=== PATIENT | male | born 1970 | race Caucasian/White ===

== ENCOUNTER 2023-08-11 13:35 | Emergency (ER) | payer SELFPAY ==
[2023-08-11 13:38] VITALS: BP 125/83; PULSE 113; RESP 16; TEMP 36.6; O2SAT 95
--- NOTE | 2023-08-11 13:46 | CT_ITS ---
WS: [id number] CT HEAD NONCONTRAST HISTORY: tremors TECHNIQUE: Contiguous axial imaging performed through the brain in 2.5 mm imaging. Bone and soft tiss ue windows. Sagittal and coronal reformats reviewed. All CT scans at [facility] use at least one of these dose optimization techniques: automated exposure control; mA and/or kV adjustment per pa tient size (includes targeted exams where dose is matched to clinical indication); or iterative recon struction. DLP: 1113.91 mGy.cm COMPARISON: None available. No acute intracranial hemorrhage, midline shift or mass effect. No significant atrophy. There are very slight area of decreased attenuation posteriorly in the occipi calista lobes. Ventricles: Normal size with no hydrocephalus. No inferior displacement of the cerebellar tonsils. Paranasal sinuses: Mild mucoperiosteal thickening in the ethmoid air cells. Mastoid air cells: Well pneumatized. Calvarium and scalp: Skull is intact with no soft tissue edema or swelling. IMPRESSION: 1. No acute intracranial hemorrhage or edema. 2. Very slight low attenuation in the occipital lobes bilaterally. May be related to small vessel is chemic disease. PRESS may appear similar. Consider follow-up MRI brain with and without contrast.
[2023-08-11 14:13] LABS: Basophils # 0.1 10^3/uL (0.0-0.1); Basophils % 0.5 %; Eosinophils # 0.1 10^3/uL (0.0-0.8); Hematocrit 46.9 % (37-53); Lymphocytes # 1.6 10^3/uL (0.8-4.8); Lymphocytes % 15.9 %; Mean Corpuscular HGB Conc 33.7 g/dL (30-55); Mean Corpuscular Volume 86.1 fl (82-101); Mean Platelet Volume 10.8 fL (7.4-10.4); Monocytes # 0.6 10^3/uL (0.2-0.9); Monocytes % 5.4 %; Neutrophils # 7.88 10^3/uL (1.8-7.7); Neutrophils % 76.6 %; Nucleated Red Blood Cells % 0 %; Platelet Count 264 10^3/cmm (157-399); Red Blood Count 5.45 10^6/uL (3.85-5.65); Red Cell Distribution Width 12.6 % (12.1-15.1); White Blood Count 10.29 10^3/uL (3.29-11.43)
[2023-08-11 14:32] VITALS: BP 119/74; PULSE 87; RESP 19; O2SAT 98
[2023-08-11 14:38] LABS: Alanine Aminotransferase 15 U/L (0-41); Albumin Level 4.3 g/dL (3.5-5.2); Alkaline Phosphatase 87 U/L (40-130); Ammonia 22 umol/L (16-60); Anion Gap 16.7 (5-19); Aspartate Amino Transferase 19 U/L (0-40); Blood Urea Nitrogen 19 mg/dL (6-20); Calcium 9.6 mg/dL (8.5-10.5); Carbon Dioxide 26 mmol/L (22-29); Chloride 98 mmol/L (98-107); Globulin 3.7 g/dL (1.3-4.6); Glomerular Filtration Rate 69.8 mL/min (90-130); Glucose 72 mg/dL (65-115); Osmolality Calculated 285 mOsm/kg (285-295); Potassium 3.7 mmol/L (3.5-5.1); Sodium 137 mmol/L (136-145); Total Bilirubin 0.3 mg/dL (0.15-1.2)
--- NOTE | 2023-08-11 14:46 | ED_ITS ---
HPI - General Adult 2 General: Chief complaint: General Medical Stated complaint: zandra isaacs, dizzy Time Seen by Provider: 08/11/23 13:43 History of Present Illness: 53-year-old man who presents to the [facility] with tremors. He says this has been going on for about 4 months. He went to his clinic today and I will they have him scheduled to see a specialist in a month or so they told him to go to the emergency room he says. The tremor affects his speech. He appears to have a pill-rolling tremor of his left hand. He has a very parkinsonian appearance. His only medical history says his hypertension. No altered mental status. No focal motor deficits. No chest pain. No shortness of breath. No nausea or vomiting. Patient does state that he has a family history of some sort of parkinsonian type illness. Review of Systems 2 Narrative: Constitutional symptoms: Negative except as documented in HPI. Skin symptoms: Negative except as documented in HPI. Eye symptoms: Negative except as documented in HPI. ENMT symptoms: Negative except as documented in HPI. Respiratory symptoms: Negative except as documented in HPI. Cardiovascular symptoms: Negative except as documented in HPI. Gastrointestinal symptoms: Negative except as documented in HPI. Genitourinary symptoms: Negative except as documented in HPI. Musculoskeletal symptoms: Negative except as documented in HPI. Neurologic symptoms: Negative except as documented in HPI. Psychiatric symptoms: Negative except as documented in HPI. Endocrine symptoms: Negative except as documented in HPI. Physical Exam 2 Narrative: EXAM NARRATIVE: General: Alert, no acute distress. Skin: Warm, dry. Head: Normocephalic, atraumatic. Neck: Supple, trachea midline. Eye: Extraocular movements are intact. Ears, nose, mouth and throat: mucosa moist. Cardiovascular: Regular, Normal peripheral perfusion. Respiratory: Lungs are clear to auscultation, respirations are non-labored, breath sounds are equal, Symmetrical chest wall expansion. Gastrointestinal: Soft, Nontender, Non distended, Normal bowel sounds. Musculoskeletal: Normal ROM, no deformity. Neurological: Alert and oriented, No focal neurological deficit observed. Patient has a fairly severe tremor. Parkinsonian-like. Pill-rolling tremor of his left hand. It affects his speech. Psychiatric: Cooperative, appropriate mood & affect. Course 2 Vital Signs: Vital signs: Vital Signs Temperature 98 F 08/11/23 13:38 Pulse Rate 87 04/23/24 14:32 Respiratory Rate 19 H 08/11/23 14:32 Blood Pressure 119/74 08/11/23 14:32 Pulse Oximetry 98 08/11/23 14:32 Oxygen Delivery Me thod Room Air 08/11/23 14:32 MDM - General Adult Medical Decision Making Medical decision making: Differential diagnosis including but not limited to and based on the above HPI, review of systems and physical exam: I have concern for Parkinson's. To start his workup I am doing basic lab work and a CT scan. Also consultation with neurology. Orders placed to evaluate differential diagnosis based on the above differential, HPI and physical exam Lab Review: Laboratory results were reviewed and interpreted by myself the emergency room physician. Lab work is unremarkable. No leukocytosis. No renal failure. CT head: No acute intracranial process. no intracranial hemorrhage, no evidence of infarct. no evidence of acute fracture.This was reviewed and interpreted by myself the ER physician. Consultation: I spoke with Dr. Amaral with neurology. She agrees with the workup so far and will see the patient in clinic on Thursday morning at 8 AM. I reviewed the patient's medical record. Reexamination: Patient remained stable. No altered mental status. Still with a tremor. No increased work of breathing. Lab Data 08/11/23 14:07 08/11/23 14:07 Laboratory Results WBC 10.29 10^3/uL (3.29-11.43) 08/11/23 14:07 RBC 5.45 10^6/uL (3.85-5.65) 08/11/23 14:07 Hgb 15.80 g/dL (11.27-16.99) 08/11/23 14:07 Hct 46.9 % (37-53) 08/11/23 14:07 MCV 86.1 fl (82-101) 08/11/23 14:07 MCH 29.0 pg (27-33) 08/11/23 14:07 MCHC 33.7 g/dL (30-55) 08/11/23 14:07 RDW 12.6 % (12.1-15.1) 08/11/23 14:07 Plt Count 264 10^3/cmm (157-399) 08/11/23 14:07 MPV 10.8 fL (7.4-10.4) H 08/11/23 14:07 Neut % (Auto) 76.6 % 08/11/23 14:07 Lymph % (Auto) 15.9 % 08/11/23 14:07 [place] % (Auto) 5.4 % 08/11/23 14:07 Eos % (Auto) 1.0 % 08/11/23 14:07 Baso % (Auto) 0.5 % 08/11/23 14:07 Neut # (Auto) 7.88 10^3/uL (1.8-7.7) H 08/11/23 14:07 Lymph # (Auto) 1.6 10^3/uL (0.8-4.8) 08/11/23 14:07 [place] # (Auto) 0.6 10^3/uL (0.2-0.9) 08/11/23 14:07 Eos # (Auto) 0.1 10^3/uL (0.0-0.8) 08/11/23 14:07 Baso # (Auto) 0.1 10^3/uL (0.0-0.1) 08/11/23 14:07 Nucleated RBC % (auto) 0 % 08/11/23 14:07 Nucleated RBCs # 0.0 /100WBC 08/11/23 14:07 Sodium 137 mmol/L (136-145) 08/11/23 14:07 Potassium 3.7 mmol/L (3.5-5.1) 08/11/23 14:07 Chloride 98 mmol/L (98-107) 08/11/23 14:07 Carbon Dioxide 26 mmol/L (22-29) 08/11/23 14:07 Anion Gap 16.7 (5-19) 08/11/23 14:07 BUN 19 mg/dL (6-20) 08/11/23 14:07 Creatinine 1.1 mg/dL (0.7-1.2) 08/11/23 14:07 GFR Calculation 69.8 mL/min (90-130) L 08/11/23 14:07 Glucose 72 mg/dL (65-115) 08/11/23 14:07 Calculated Osmolality 285 mOsm/kg (285-295) 08/11/23 14:07 Calcium 9.6 mg/dL (8.5-10.5) 08/11/23 14:07 Total Bilirubin 0.3 mg/dL (0.15-1.2) 08/11/23 14:07 AST 19 U/L (0-40) 08/11/23 14:07 ALT 15 U/L (0-41) 08/11/23 14:07 Alkaline Phosphatase 87 U/L (40-130) 08/11/23 14:07 Ammonia 22 umol/L (16-60) 08/11/23 14:07 Total Protein 8.0 g/dL (6.6-8.7) 08/11/23 14:07 Albumin 4.3 g/dL (3.5-5.2) 08/11/23 14:07 Globulin 3.7 g/dL (1.3-4.6) 08/11/23 14:07 All radiology interpretation(s) finalized by discharge Other Data Assessment and plan: Tremor - Discharged home - Discussed findings and plan with patient. Answered any questions. - All laboratory values were reviewed and interpreted personally by myself, the ER physician - All imaging was reviewed and interpreted personally by myself, the ER physician. - Evaluation and treatment of this problem were appropriate in the emergency setting Discharge Plan Discharge Patient Disposition: Home Clinical Impression: Tremor Condition: Stable Discharge Orders: Discharge ED (Routine); Ordered 08/11/23 Ordered By: Lyubov Bhatia Referrals: Annie Amaral MD [Physician] - 08/14/23 8:00 am Bernard Ibarra DO [Primary Care Provider] - (You have been screened and evaluated and felt safe for discharge. Health conditions do change or evolve sometimes and as such it is important that you follow up with your Primary Doctor to be re checked, 3-5 days is a general good time frame for follow up. You are always welcome to return to the ED for re assessment if your symptoms are worsening or you have new concerns) Discharge Diet: Usual diet Discharge Activity: Increase activity as tolerated Patient Instructions: Tremors (ED) Coding Level of Care Code ED Supervisor [employer] for [facility]
== END 2023-08-11 15:49 | disposition home or self-care (01) ==
PROVIDERS: Emergency Provider Emergency Medicine; PCP Family Medicine
DX: R25.1 Tremor, unspecified (principal)
CPT/HCPCS: 36415; 70450; 80053; 82140; 85025; 99284